=== PATIENT | female | born 2000 | race Caucasian/White ===

== ENCOUNTER 2024-10-08 12:11 | Emergency (ER) | payer BC, MEDICAID, SELFPAY ==
[2024-10-08 12:12] VITALS: BP 140/88; PULSE 83; RESP 16; TEMP 38.1; O2SAT 98
--- NOTE | 2024-10-08 12:15 | W.ED.PREGNAN ---
HPI - General: Chief complaint: Abdominal Pain Stated complaint: heavy bleeding. 8.5 weeks Time Seen by Provider: 10/08/24 12:12 History of Present Illness: 24-year-old female presents emergency room complaining of heavy bleeding. Patient reports she is 8 and half weeks gestation. Associated symptoms: Deny abdominal pain or dysuria Related Data Home Medications ?Medication ?Instructions ?Recorded ?Confirmed acetaminophen-pamabrom 500 mg-25 1 tab PO Q6H PRN Pain 10/08/24 10/13/24 mg tablet (Midol) ibuprofen 200 mg tablet 200 mg PO Q6H PRN Pain 10/08/24 10/13/24 vits no.133-ferrous 1 tab PO DAILY 10/08/24 10/13/24 fumarate 28 mg-folic acid 800 mcg tablet () Allergies Allergy/AdvReac Type Severity Reaction Status Date / Time No Known Allergies Allergy Verified 10/13/24 09:27 Review of Systems Const: Denies: fever(s) or chills Card: Denies: chest pain Resp: Denies: dyspnea GI: Denies: abdominal pain : Denies: dysuria, urinary frequency or urinary urgency Musc: Denies: neck pain or back pain Skin/Breast: Denies: rash PFSH ED PFSH: Medical History Need for rhogam due to Rh negative mother Complete Surgical History Hx of section Family History Mother Hypertension Social History Smoking and tobacco/nicotine status: never used tobacco/nicotine Physical Exam Const: GENERAL APPEARANCE: cooperative ORIENTATION/CONSCIOUSNESS: Yes awake, Yes oriented to person, Yes oriented to place and Yes oriented to time HENMT: COMMON NORMALS: normocephalic, atraumatic and hearing grossly normal bilaterally HEAD & SCALP: normocephalic and atraumatic Resp: COMMON NORMALS: normal respiratory effort, No retractions, No use of accessory muscles and clear to auscultation bilaterally AUSCULTATION: clear to auscultation bilaterally Cardio: COMMON NORMALS: regular rate, regular rhythm and No murmurs present (Cardio) RATE: regular rate RHYTHM: regular rhythm GI: COMMON NORMALS: Soft to palpation and No hepatosplenomegaly present AUSCULTATION: Yes normoactive bowel sounds PALPATION: Yes Soft to palpation, No Tenderness to palpation present (GI), No Guarding due to palpation present (GI) and Yes No hepatosplenomegaly present Extremity: COMMON NORMALS: normal to inspection, capillary refill normal, no clubbing, cyanosis or edema, no calf tenderness and no pedal edema Neuro: SENSORIUM/ORIENTATION: Yes oriented to person, Yes oriented to place and Yes oriented to time Skin: COMMON NORMALS: no rashes or lesions noted GENERAL SKIN EXAM: no rashes or lesions noted Course Vital Signs: Vital signs: Vital Signs Temperature 100.5 F H 10/08/24 12:12 Pulse Rate 86 10/08/24 15:38 Respiratory Rate 16 10/08/24 12:12 Blood Pressure 112/68 10/08/24 15:38 Pulse Oximetry 97 10/08/24 15:38 Oxygen Delivery Me thod Room Air 10/08/24 15:37 MDM - OB/Uterine Contractions Medical Decision Making Patient is incomplete AB. Pelvic exam no POC at the os. Bleeding is decreased. She does have a little bit of a low-grade fever we will start her on doxycycline. No leukocytosis. She will need short-term follow-up with [facility]. Return if fever or is persistent or if develops worsening pain purulent vaginal discharge or worsening bleeding. Medical Records I reviewed the patient's medical records. Lab Data I reviewed the patient's lab results. 10/08/24 12:28 10/08/24 12:28 Laboratory Results WBC 13.39 10^3/uL (3.29-11.43) H 10/08/24 12:28 RBC 4.92 10^6/uL (3.85-5.65) 10/08/24 12:28 Hgb 13.50 g/dL (11.27-16.99) 10/08/24 12:28 Hct 41.5 % (36-47) 10/08/24 12:28 MCV 84.3 fl (85-98) L 10/08/24 12:28 MCH 27.4 pg (27-33) 10/08/24 12:28 MCHC 32.5 g/dL (30-55) 10/08/24 12: RDW 13.2 % (12.1-15.1) 10/08/24 12:28 Plt Count 329 10^3/cmm (157-399) 10/08/24 12:28 MPV 9.2 fL (7.4-10.4) 10/08/24 12: Neut % (Auto) 77.8 % 10/08/24 12: Lymph % (Auto) 16.1 % 10/08/24 12:28 [place] % (Auto) 4.9 % 10/08/24 12: Eos % (Auto) 0.5 % 10/08/24 12: Baso % (Auto) 0.2 % 10/08/24 12: Neut # (Auto) 10.41 10^3/uL (1.8-7.7) H 10/08/24 12: Lymph # (Auto) 2.2 10^3/uL (0.8-4.8) 10/08/24 12:28 [place] # (Auto) 0.7 10^3/uL (0.2-0.9) 10/08/24 12:28 Eos # (Auto) 0.1 10^3/uL (0.0-0.8) 10/08/24 12: Baso # (Auto) 0.0 10^3/uL (0.0-0.1) 10/08/24 12: Nucleated RBC % (auto) 0 % 10/08/24 12: Nucleated RBCs # 0.0 /100WBC 10/08/24 12:28 Sodium 136 mmol/L (136-145) 10/08/24 12:28 Potassium 4.0 mmol/L (3.5-5.1) 10/08/24 12:28 Chloride 100 mmol/L (98-107) 10/08/24 12: Carbon Dioxide 24 mmol/L (22-29) 10/08/24 12:28 Anion Gap 16.0 (5-19) 10/08/24 12:28 BUN 5 mg/dL (6-20) L 10/08/24 12:28 Creatinine 0.5 mg/dL (0.5-0.9) 10/08/24 12:28 GFR Calculation 152.9 mL/min (90-130) H 10/08/24 12:28 Glucose 100 mg/dL (65-115) 10/08/24 12:28 Calculated Osmolality 279 mOsm/kg (285-295) L 10/08/24 12:28 Calcium 9.6 mg/dL (8.5-10.5) 10/08/24 12:28 Total Bilirubin 0.3 mg/dL (0.15-1.2) 10/08/24 12:28 AST 11 U/L (0-32) 10/08/24 12:28 ALT 11 U/L (0-33) 10/08/24 12:28 Alkaline Phosphatase 79 U/L (35-105) 10/08/24 12:28 Total Protein 7.4 g/dL (6.6-8.7) 10/08/24 12: Albumin 4.2 g/dL (3.5-5.2) 10/08/24 12: Globulin 3.2 g/dL (1.3-4.6) 10/08/24 12:28 Ser , Semi-Qnt 716.90 mIU/mL 10/08/24 12:28 Urine Color Yellow (Yellow) 10/08/24 13:53 Urine Appearance Clear (CLEAR) 10/08/24 13:53 Urine pH 6.0 (5-7) 10/08/24 13:53 Ur Specific [place] 1.007 (1.005-1.030) 10/08/24 13:53 Urine Protein Negative (Negative) 10/08/24 13:53 Urine Glucose (UA) Negative (Normal) 10/08/24 13:53 Urine Ketones Negative (Negative) 10/08/24 13:53 Urine Blood Negative (Negative) 10/08/24 13:53 Urine Nitrate Negative (Negative) 10/08/24 13:53 Urine Bilirubin Negative (Negative) 10/08/24 13:53 Urine Urobilinogen 0.2 mg/dL (Negative) 10/08/24 13:53 Ur Leukocyte Esterase Negative (Negative) 10/08/24 13:53 Urine RBC 0-2 /hpf (0-2) 10/08/24 13:53 Urine WBC 0-5 /hpf (0-5) 10/08/24 13:53 Ur Squamous Epith Cells 0-5 /hpf (0-5) 10/08/24 13:53 Amorphous Sediment Not Reportable 10/08/24 13:53 Urine Bacteria None seen /hpf (NONE) 10/08/24 13:53 Hyaline Casts 0-4 /lpf H 10/08/24 13:53 Rho(D) Type Rh negative 10/08/24 12:28 No radiology studies performed this visit Discharge Plan Discharge Patient Disposition: Home Clinical Impression: Incomplete miscarriage Condition: Stable Prescriptions: No Action Midol 500-25 mg Tablet 1 tab PO Q6H PRN (Reason: Pain) ibuprofen 200 mg Tablet 200 mg PO Q6H PRN (Reason: Pain) 28-800 mg-mcg Tablet 1 tab PO DAILY Discharge Orders: Discharge ED (Routine); Ordered 10/08/24 Ordered By: Sebastian Trejo Discharge Diet: Usual diet Discharge Activity: Resume usual activity Patient Instructions: Opioid Safety, Pain Management, Patient Portal & Cecilio Instructions Activity Restrictions/Additional Instructions: Thank you for choosing [facility] for your healthcare needs today. It is very important that you follow up as instructed or that you return to the Emergency Department should you have concerns or if your condition changes or worsens in any way. You were seen in the emergency room with an incomplete miscarriage. Your white count was slightly elevated you also had a low-grade fever recommend that you start oral antibiotics 1 pill twice a day. Your beta-hCG was at the lower end approximately where to be expected based on your history. Urine was normal. Recommend you follow-up with your [facility] in 3 to 4 days. Return if you have increasing bleeding or pain Print Language: Romansh Coding Level of Care Code ED Audiovisual Lead Technician for Monserrat Lindsey
[2024-10-08 12:48] LABS: Hematocrit 41.5 % (36-47); Hemoglobin 13.50 g/dL (11.27-16.99); Mean Corpuscular HGB Conc 32.5 g/dL (30-55); Mean Corpuscular Hemoglobin 27.4 pg (27-33); Mean Corpuscular Volume 84.3 fl (85-98); Nucleated Red Blood Cells % 0 %; Platelet Count 329 10^3/cmm (157-399); Red Blood Count 4.92 10^6/uL (3.85-5.65); White Blood Count 13.39 10^3/uL (3.29-11.43)
[2024-10-08 13:31] LABS: Alanine Aminotransferase 11 U/L (0-33); Albumin Level 4.2 g/dL (3.5-5.2); Alkaline Phosphatase 79 U/L (35-105); Anion Gap 16.0 (5-19); Aspartate Amino Transferase 11 U/L (0-32); Blood Urea Nitrogen 5 mg/dL (6-20); Calcium 9.6 mg/dL (8.5-10.5); Carbon Dioxide 24 mmol/L (22-29); Chloride 100 mmol/L (98-107); Globulin 3.2 g/dL (1.3-4.6); Glucose 100 mg/dL (65-115); Osmolality Calculated 279 mOsm/kg (285-295); Potassium 4.0 mmol/L (3.5-5.1); Sodium 136 mmol/L (136-145); Total Protein 7.4 g/dL (6.6-8.7)
[2024-10-08 13:39] VITALS: BP 117/86; PULSE 72; O2SAT 95
[2024-10-08 13:42] LABS: Add Urine Microscopic? YES; UA Manual Slide Review YES
[2024-10-08 15:15] LABS: Glucose Urine UA Negative (Normal); Nitrate Urine Negative (Negative); Specific Gravity, Urine 1.007 (1.005-1.030)
[2024-10-08 15:37] VITALS: PULSE 89; O2SAT 96
[2024-10-08 15:38] VITALS: BP 112/68; PULSE 86; O2SAT 97
== END 2024-10-08 15:40 | disposition home or self-care (01) ==
PROVIDERS: Emergency Provider Family Medicine
DX: O03.4 Incomplete spontaneous abortion without complication (principal)
CPT/HCPCS: 36415; 80053; 81001; 84702; 85025; 87040; 87070; 87086; 87205; 96372; 96374; 99284; J1885; J2790

== ENCOUNTER → 2024-10-13 15:28 | Outpatient (BNVA) | payer BC, MEDICAID, SELFPAY | PROVIDERS: Visit Provider Obstetrics & Gynecology | DX: O03.4 Incomplete spontaneous abortion without complication (principal) | CPT/HCPCS: 84702; 85025 ==

== ENCOUNTER 2024-11-16 10:20 | Emergency (ER) | payer BC, MEDICAID, SELFPAY ==
[2024-11-16 10:37] VITALS: BP 134/80; PULSE 62; TEMP 37.2; O2SAT 100; BMI 27.1
--- NOTE | 2024-11-16 11:24 | US_ITS ---
WS: [id number] Pelvic ultrasound, Clinical Data: miscarriage Comparison: None. Findings: The uterus measures 3.8 cm x 5.6 cm x 6.9 cm. The endometrium is 2.6 cm. No intrauterine is seen. With the history of recent miscarriage retained products of conception may remain in the uterus. The left ovary measures cm x 2.7 cm x 1.9 cm with no cysts or masses. The right ovary measures 2.3 cm x 1.9 cm x 2.3 cm with no cysts or masses. No fluid is seen in the cul-de-sac. US/US OB <= 14 weeks fetus [id number] Impression: Probable retained products of conception.
--- NOTE | 2024-11-16 11:24 | W.ED.PREGNAN ---
HPI - General: Chief complaint: Vaginal Bleeding Stated complaint: miscarrige in September still bleeding Time Seen by Provider: 11/16/24 11:02 Source: patient Mode of arrival: ambulatory Limitations: no limitations History of Present Illness: 24-year-old female who states that she had a miscarriage on October 05. States that since then she has had bleeding she states that it improved but over the last 3 days she has had some heavier bleeding with passing slight clots. Had some abdominal cramping she denies any severe pains. Denies any worse improving factors denies any dysuria Associated symptoms: Deny abdominal pain, headache(s), nausea or vomiting Related Data Home Medications ?Medication ?Instructions ?Recorded ?Confirmed acetaminophen-pamabrom 500 mg-25 1 tab PO Q6H PRN Pain 10/08/24 10/13/24 mg tablet (Midol) ibuprofen 200 mg tablet 200 mg PO Q6H PRN Pain 10/08/24 10/13/24 vits no.133-ferrous 1 tab PO DAILY 10/08/24 10/13/24 fumarate 28 mg-folic acid 800 mcg tablet () Allergies Allergy/AdvReac Type Severity Reaction Status Date / Time No Known Allergies Allergy Verified 11/16/24 10:42 Review of Systems Const: Denies: fever(s), chills, body aches or change in appetite ENMT: Denies: throat pain or dental pain Card: Denies: chest pain Resp: Denies: dyspnea GI: Denies: abdominal pain, nausea, vomiting or diarrhea : Reports: vaginal bleeding Musc: Denies: neck pain or back pain Skin/Breast: Denies: rash Neuro: Denies: headache(s) PFSH ED PFSH: Medical History Need for rhogam due to Rh negative mother Complete Surgical History Hx of section Family History Mother Hypertension Social History Smoking and tobacco/nicotine status: never used tobacco/nicotine Physical Exam Const: COMMON NORMALS: no acute distress, patient oriented x3 and healthy appearing HENMT: COMMON NORMALS: normocephalic and atraumatic HEAD & SCALP: normocephalic and atraumatic Eye: COMMON NORMALS: Equal, round and reactive pupils present PUPIL: Yes Equal, round and reactive pupils present Neck/C-Spine: COMMON NORMALS: full ROM and supple Chest: COMMONS NORMALS: normal inspection of the chest Resp: COMMON NORMALS: normal respiratory effort Cardio: COMMON NORMALS: regular rate, regular rhythm and No murmurs present (Cardio) RATE: regular rate RHYTHM: regular rhythm GI: COMMON NORMALS: Normal to inspection, nondistended, normoactive bowel sounds present, Soft to palpation, non-tender and no masses PALPATION: Yes Soft to palpation Extremity: COMMON NORMALS: normal to inspection and full ROM Neuro: COMMON NORMALS: patient oriented x3, moves all extremities and no focal motor deficits Psych: COMMON NORMALS: mental status grossly normal, Normal thought process present and cooperative THOUGHT PROCESS: Normal thought process present Skin: COMMON NORMALS: no rashes or lesions noted and no wounds GENERAL SKIN EXAM: no rashes or lesions noted Course Vital Signs: Vital signs: Vital Signs Temperature 99.0 F 11/16/24 10:37 Pulse Rate 81 11/16/24 13:06 Respiratory Rate 16 11/16/24 13:06 Blood Pressure 130/86 11/16/24 13:06 Pulse Oximetry 100 11/16/24 13:06 Oxygen Delivery Me thod Room Air 11/16/24 13:06 MDM - OB/Uterine Contractions Medical Decision Making Patient presents here with vaginal bleeding quantitative here is 2.8 ultrasound did show some debris possible retained products she has no heavy bleeding her hemoglobin here is normal did speak to MANAGER LABORATORY Dr. Carey who is going to see her in his office tomorrow she is return if worsening she understands agrees to plan. Medical Records I reviewed the patient's medical records. Lab Data I reviewed the patient's lab results. 11/16/24 12:10 11/16/24 12:10 Radiology Impressions Ultrasound 11/16/24 11:24 Impression: Probable retained products of conception. Laboratory Results WBC 9.94 10^3/uL (3.29-11.43) 11/16/24 12:10 RBC 5.04 10^6/uL (3.85-5.65) 11/16/24 12:10 Hgb 13.40 g/dL (11.27-16.99) 11/16/24 12:10 Hct 41.7 % (36-47) 11/16/24 12:10 MCV 82.7 fl (85-98) L 11/16/24 12:10 MCH 26.6 pg (27-33) L 11/16/24 12:10 MCHC 32.1 g/dL (30-55) 11/16/24 12:10 RDW 13.2 % (12.1-15.1) 11/16/24 12:10 Plt Count 399 10^3/cmm (157-399) 11/16/24 12:10 MPV 9.0 fL (7.4-10.4) 11/16/24 12:10 Neut % (Auto) 61.0 % 11/16/24 12:10 Lymph % (Auto) 30.6 % 11/16/24 12:10 [place] % (Auto) 6.8 % 11/16/24 12:10 Eos % (Auto) 0.8 % 11/16/24 12:10 Baso % (Auto) 0.4 % 11/16/24 12:10 Neut # (Auto) 6.06 10^3/uL (1.8-7.7) 11/16/24 12:10 Lymph # (Auto) 3.0 10^3/uL (0.8-4.8) 11/16/24 12:10 [place] # (Auto) 0.7 10^3/uL (0.2-0.9) 11/16/24 12:10 Eos # (Auto) 0.1 10^3/uL (0.0-0.8) 11/16/24 12:10 Baso # (Auto) 0.0 10^3/uL (0.0-0.1) 11/16/24 12:10 Nucleated RBC % (auto) 0 % 11/16/24 12:10 Nucleated RBCs # 0.0 /100WBC 11/16/24 12:10 Sodium 141 mmol/L (136-145) 11/16/24 12:10 Potassium 4.0 mmol/L (3.5-5.1) 11/16/24 12:10 Chloride 102 mmol/L (98-107) 11/16/24 12:10 Carbon Dioxide 25 mmol/L (22-29) 11/16/24 12:10 Anion Gap 18.0 (5-19) 11/16/24 12:10 BUN 10 mg/dL (6-20) 11/16/24 12:10 Creatinine 0.6 mg/dL (0.5-0.9) 11/16/24 12:10 GFR Calculation 123.9 mL/min (90-130) 11/16/24 12:10 Glucose 96 mg/dL (65-115) 11/16/24 12:10 Calculated Osmolality 291 mOsm/kg (285-295) 11/16/24 12:10 Calcium 10.0 mg/dL (8.5-10.5) 11/16/24 12:10 Total Bilirubin 0.3 mg/dL (0.15-1.2) 11/16/24 12:10 AST 12 U/L (0-32) 11/16/24 12:10 ALT 11 U/L (0-33) 11/16/24 12:10 Alkaline Phosphatase 89 U/L (35-105) 11/16/24 12:10 Total Protein 7.9 g/dL (6.6-8.7) 11/16/24 12:10 Albumin 4.7 g/dL (3.5-5.2) 11/16/24 12:10 Globulin 3.2 g/dL (1.3-4.6) 11/16/24 12:10 HCG, Qual Negative (Negative) 11/16/24 12:10 Ser , Semi-Qnt 2.80 mIU/mL 11/16/24 12:10 Urine Color [place] (Yellow) A 11/16/24 11:17 Urine Appearance Clear (CLEAR) 11/16/24 11:17 Urine pH 8.0 (5-7) A 11/16/24 11:17 Ur Specific [place] 1.005 (1.005-1.030) 11/16/24 11:17 Urine Protein 1+ (Negative) A 11/16/24 11:17 Urine Glucose (UA) Negative (Normal) 11/16/24 11:17 Urine Ketones Negative (Negative) 11/16/24 11:17 Urine Blood 3+ (Negative) A 11/16/24 11:17 Urine Nitrate Negative (Negative) 11/16/24 11:17 Urine Bilirubin Negative (Negative) 11/16/24 11:17 Urine Urobilinogen 0.2 mg/dL (Negative) 11/16/24 11:17 Ur Leukocyte Esterase Trace (Negative) A 11/16/24 11:17 Urine RBC 51-100 /hpf (0-2) H 11/16/24 11:17 Urine WBC 0-4 /hpf (0-5) H 11/16/24 11:17 Ur Squamous Epith Cells 0-4 /hpf (0-5) H 11/16/24 11:17 Amorphous Sediment Not Reportable 11/16/24 11:17 Urine Bacteria None /hpf (NONE) 11/16/24 11:17 Urine Mucus None /hpf 11/16/24 11:17 All radiology interpretation(s) finalized by discharge Discharge Plan Discharge Patient Disposition: Home Clinical Impression: Abnormal vaginal bleeding Condition: Stable Prescriptions: No Action Midol 500-25 mg Tablet 1 tab PO Q6H PRN (Reason: Pain) ibuprofen 200 mg Tablet 200 mg PO Q6H PRN (Reason: Pain) 28-800 mg-mcg Tablet 1 tab PO DAILY Discharge Orders: Discharge ED (Routine); Ordered 11/16/24 Ordered By: Naa Baires Discharge Diet: Advance as tolerated Discharge Activity: Resume usual activity Patient Instructions: Abnormal (Dysfunctional) Uterine Bleeding (ED) Print Language: Hungarian Coding Level of Care Code ED Order Checker Packer Processer for Monserrat Lindsey
[2024-11-16 11:52] LABS: Glucose Urine UA Negative (Normal); Nitrate Urine Negative (Negative); Specific Gravity, Urine 1.005 (1.005-1.030)
[2024-11-16 12:13] LABS: Add Urine Microscopic? YES
[2024-11-16 12:23] LABS: Hematocrit 41.7 % (36-47); Hemoglobin 13.40 g/dL (11.27-16.99); Mean Corpuscular HGB Conc 32.1 g/dL (30-55); Mean Corpuscular Hemoglobin 26.6 pg (27-33); Mean Corpuscular Volume 82.7 fl (85-98); Nucleated Red Blood Cells % 0 %; Platelet Count 399 10^3/cmm (157-399); Red Blood Count 5.04 10^6/uL (3.85-5.65); White Blood Count 9.94 10^3/uL (3.29-11.43)
[2024-11-16 12:32] LABS: HCG, Serum Qual Negative (Negative)
[2024-11-16 12:42] LABS: Alanine Aminotransferase 11 U/L (0-33); Albumin Level 4.7 g/dL (3.5-5.2); Alkaline Phosphatase 89 U/L (35-105); Anion Gap 18.0 (5-19); Aspartate Amino Transferase 12 U/L (0-32); Blood Urea Nitrogen 10 mg/dL (6-20); Calcium 10.0 mg/dL (8.5-10.5); Carbon Dioxide 25 mmol/L (22-29); Chloride 102 mmol/L (98-107); Creatinine Clr Calc Pharmacy 141.5487; Globulin 3.2 g/dL (1.3-4.6); Glucose 96 mg/dL (65-115); Osmolality Calculated 291 mOsm/kg (285-295); Potassium 4.0 mmol/L (3.5-5.1); Sodium 141 mmol/L (136-145); Total Protein 7.9 g/dL (6.6-8.7)
[2024-11-16 12:44] VITALS: BP 120/51; O2SAT 96
[2024-11-16 13:06] VITALS: BP 130/86; PULSE 81; RESP 16; O2SAT 100
== END 2024-11-16 13:24 | disposition home or self-care (01) ==
PROVIDERS: Family Medicine; Emergency Provider Emergency Medicine
DX: N93.9 Abnormal uterine and vaginal bleeding, unspecified (principal)
CPT/HCPCS: 76801; 80053; 81001; 84702; 84703; 85025; 87086; 99284

== ENCOUNTER → 2025-01-27 13:30 | Outpatient (BNVA) | payer BC, MEDICAID, SELFPAY | PROVIDERS: Visit Provider Obstetrics & Gynecology | DX: O03.9 Complete or unspecified spontaneous abortion without complication (principal); Z3A.00 Weeks of gestation of pregnancy not specified | CPT/HCPCS: 84702 ==

== ENCOUNTER → 2025-02-11 15:17 | Outpatient (BNVA) | payer BC, MEDICAID, SELFPAY | PROVIDERS: Visit Provider Obstetrics & Gynecology | DX: O03.9 Complete or unspecified spontaneous abortion without complication (principal); Z3A.00 Weeks of gestation of pregnancy not specified | CPT/HCPCS: 84702; 86850; 86900 ==